=== PATIENT | male | born 1955 | race Two or more races ===

== ENCOUNTER 2025-03-31 06:55 | Day surgery (SDC) | payer OTHER, SELFPAY ==
[2025-03-30 08:44] LABS: Collection Type, Urine Clean Catch; Squamous Epithelial Cell,Urine 0 /hpf (0-5)
[2025-03-30 09:33] LABS: Basophils # (Auto) 0.0 Thou/mm3 (0.0-0.2); Basophils % (Auto) 1 % (0-2.5); Eosinophils # (Auto) 0.3 Thou/mm3 (0.0-0.5); Eosinophils % (Auto) 4 % (0-10); Hematocrit 42.4 % (41.0-53.0); Hemoglobin 14.3 g/dL (13.5-16.0); Immature Granulocytes Auto 0.02 Thou/mm3 (0.00-0.00); Lymphocytes # (Auto) 2.6 Thou/mm3 (1.0-4.8); Lymphocytes % (Auto) 37 % (10-50); Mean Corpuscular HGB Conc 33.7 g/dl (31.0-37.0); Mean Corpuscular Hemoglobin 30.2 pg (25.0-35.0); Mean Corpuscular Volume 90 fL (80-100); Monocytes # (Auto) 0.8 Thou/mm3 (0.0-0.8); Monocytes % (Auto) 11 % (0-12); Neutrophils # (Auto) 3.3 Thou/mm3 (1.8-7.7); Neutrophils % (Auto) 47 % (37-80); Nucleated Red Blood Cell # 0.00 Thou/mm3 (0.00-0.00); Nucleated Red Blood Cell % 0 /100 WBC (0); Platelet Count 261 Thou/mm3 (140-440); RDW Standard Deviation 42.6 fL (35.1-43.9); Red Blood Count 4.74 Miln/mm3 (4.50-5.90); White Blood Count 7.1 Thou/mm3 (3.8-10.6)
[2025-03-30 09:35] LABS: Bilirubin,Urine Negative (Negative); Blood,Urine Negative (Negative); Clarity,Urine Clear (Clear/Hazy); Color,Urine Lt-Yellow (Lt Yel-Yel); Glucose, Urine Negative (Negative); Ketones,Urine Negative (Negative); Leukocyte Esterase,Urine Negative (Negative); Nitrite,Urine Negative (Negative); PH,Urine 5.5 (5.0-7.0); Protein,Urine Negative (Neg - Trace); RBC,Urine 2 /hpf (0-3); Specific Gravity,Urine 1.015 (1.001-1.035); Urobilinogen,Urine Negative mg/dL (0.0-1.0); WBC,Urine < 1 /hpf (0-5)
[2025-03-30 09:57] LABS: Alanine Aminotransferase 26 U/L (10-49); Albumin, Serum 4.7 gm/dL (3.4-4.8); Albumin/Globulin Ratio 2.0 (1.2-2.2); Alkaline Phosphatase 83 U/L (46-116); Anion Gap 7 (7-16); Aspartate Amino Transferase 25 U/L (0-34); BUN/Creatinine Ratio 13 Ratio (12-20); Bilirubin,Total 0.7 mg/dL (0.3-1.2); Blood Urea Nitrogen 12 mg/dL (9-23); Calcium 9.8 mg/dL (8.3-10.6); Calcium (Corrected) 9.8 mg/dL (8.5-10.1); Carbon Dioxide 27.8 mMol/L (20.0-31.0); Chloride 105 mMol/L (98-107); Creatinine (Component) 0.9 mg/dL (0.6-1.3); Globulin 2.4 gm/dL (2.3-3.5); Glucose 107 mg/dL (74-106); Osmolality,Calculated 279 (275-295); Potassium 4.3 mMol/L (3.4-5.1); Sodium 140 mMol/L (136-145); Total Protein 7.1 gm/dL (5.7-8.2); eGFR > 60 See Note
[2025-03-30 10:22] VITALS: BMI 29.2
--- NOTE | 2025-03-30 12:05 | ESCONSULT_ITS ---
RE: RASHAD RAMOS : 1955 DATE OF CONSULTATION: 03/31/2025 HISTORY OF PRESENT ILLNESS: The patient is a 69-year-old gentleman who was referred to me with history of elevated PSA of 7.9. He has nocturia x2. His percentage free PSA is 15.3. He has frequency and he has some slowing of the urinary stream with some burning. There is no history of gross hematuria. PAST MEDICAL HISTORY: He has history of hypertension and no history of diabetes mellitus. PREVIOUS SURGERIES: None. SOCIAL HISTORY: He has three children. ALLERGIES: NONE KNOWN. HOME MEDICATIONS: He takes valsartan and tamsulosin 0.4 mg everyday. CLINICAL EXAMINATION: HEENT: Normal. NECK: Supple. LUNGS: Clear. CARDIOVASCULAR: Heart sounds are normal. ABDOMEN: Soft without any organomegaly. No guarding. No rigidity. EXTREMITIES: Normal. GENITOURINARY: Phallus is normal. Testes are down in the scrotum. Rectal examination revealed moderately enlarged prostate with a right lobe hard nodule, 1 cm in size. IMPRESSION: Prostatic obstruction. Elevated PSA of 7.9. Right lobe hard nodule on the prostate 1 cm in size. PLAN: Cystoscopy and transrectal prostatic ultrasound with ultrasound-guided prostatic needle biopsy. Plan, procedure, risks and complications have been discussed with the patient. The patient has understood them and agreed to proceed. Thank you very much for your kind referral. cc: Toño Saleh MD DT: 10:52:07 TT: 11:49:00 Ref: [id number] - TID: [id number]
[2025-03-31] VITALS (12 sets, daily range): BP systolic 111–138; BP diastolic 71–97; PULSE 57–79; RESP 10–18; TEMP 36.1–36.6; O2SAT 95–98; BMI 29.5
--- NOTE | 2025-03-31 07:28 | CHAP ---
Family member translated. Had a prayer with patient before procedure.
[2025-03-31] MEDS: RINGERS LACTATED 1000 ML 1,000 ML 20 ML IV (07:53)
--- NOTE | 2025-03-31 08:30 | XR_ITS ---
Examination: Transrectal prostate sonography Date and time: 9:302024, 0842 hours INDICATIONS: Ultrasound guided prostate biopsies in the OR today TECHNIQUE AND FINDINGS: Transrectal sonographic images obtained of the prostate Prostate volume 27.11 cc IMPRESSION: Transrectal prostate sonographic images obtained for prostate biopsies in the OR
--- NOTE | 2025-03-31 09:01 | SUR.PHASEII ---
pt received from OR in recovery bay 5. pt asleep but responds to voice, breathing unlabored on room air. v/s stable. report received from Dr. Lockwood and Louis BAKER.
[2025-03-31] MEDS: KETOROLAC INJ 30 MG/ML VIAL 60 MG IM (09:24)
--- NOTE | 2025-03-31 09:30 | SUR.PHASEII ---
pt c/o bladder pain and inability to urinate, bladder scan performed 349ml seen on bladder scan. Dr. Wilkinson informed. Rn instructed to keep pt until able to urinate.
--- NOTE | 2025-03-31 10:07 | SUR.PHASEII ---
pt able to tolerate oral fluids without difficulty swallowing or nausea/vomiting.
[2025-03-31] MEDS: TAMSULOSIN HCL 0.4 MG CAPSULE PO (10:18)
--- NOTE | 2025-03-31 11:27 | SUR.PHASEII ---
pt awake and alert, breathing unlabored on room air. v/s stable. pt able to ambulate to wheelchair with steady gait. d/c instructions given with stefany Payne in room, all questions answered. pt d/c via wheelchair with all belongings.
--- NOTE | 2025-03-31 11:29 | ESOP_ITS ---
RE: RASHAD RAMOS : 1955 DATE OF OPERATION: 03/31/2025 PREOPERATIVE DIAGNOSES: Prostatism, prostatic obstruction, elevated PSA of 15.3. POSTOPERATIVE DIAGNOSES: Prostatism, prostatic obstruction, elevated PSA of 15.3. PROCEDURES PERFORMED: Cystoscopy, urethral dilatation, transrectal prostatic ultrasound with ultrasound-guided prostatic needle biopsy. ANESTHESIA: Monitored anesthesia by Dr. Lockwood. INDICATION: The patient is a 69-year-old gentleman with elevated PSA of 15.3. He has nocturia x2 with slow urinary stream. Rectally, he has a moderately sized prostate with hard nodule on the right prostatic lobe, which is about 1 cm in size located laterally. He is now scheduled to have cystoscopy and transrectal prostatic ultrasound with ultrasound-guided prostatic needle biopsy. Planned procedure, risks and complications have been discussed with the patient. The patient has understood them and agreed to proceed. DESCRIPTION OF PROCEDURE: After the patient was brought to the operating table under adequate monitored anesthesia given by Dr. Lockwood and dorsal lithotomy position, parts were prepped and draped in the usual fashion. Cystoscopy was then carried out, which revealed adequate urethral meatus, normal-appearing urethra. Prostatic urethra is moderately enlarged, bilobed. Scope was introduced into the bladder. Residual urine is 4 ounces, yellow and clear. It was sent for culture and sensitivity examination. There are no intravesical stones or tumors. Bladder mucosa is moderately trabeculated. Ureteral orifice was found to be normal in position and appearance. Scope was withdrawn. The urethra was dilated. The patient was then turned in left lateral position. Transrectal prostatic ultrasound was carried out. Biopsies were obtained from both lobes using ultrasound guidance. Prostatic volume was measured at 27.1 cubic cm. At the end of the procedure, finger-guided biopsy of the right prostatic lobe nodule was also done. The patient tolerated the entire procedure well and left the room in good condition. DT: 09:13:57 TT: 11:28:00 Ref: [id number] - TID: [id number]
== END 2025-03-31 11:27 | disposition home or self-care (01) ==
PROVIDERS: Anesthesiology; PCP Family Medicine; Referring Provider Surgery; Visit Provider Surgery
PROC: (CPT 55700; principal; 2025-03-31 08:30)
PROC: 0TJB8ZZ Inspection of Bladder, Via Natural or Artificial Opening Endoscopic (ICD-10-PCS; CPT 52000; 2025-03-31 08:30)
DX: C61 Malignant neoplasm of prostate (principal); Z01.810 Encounter for preprocedural cardiovascular examination
CPT/HCPCS: 55700; 52281; 36415; 76942; 80053; 81001; 85025; 87086; 93005; A4217; A4649; J0694; J1885; J2704; J3010; J3490; J7120; A9270

== ENCOUNTER → 2025-04-17 | Outpatient (CLI) | payer OTHER, SELFPAY ==
--- NOTE | 2025-04-17 10:30 | XR_ITS ---
Examination: CT pelvis without intravenous contrast. 2-D sagittal and coronal reconstructions. Date and time of exam: April 17, 2025, 1030 hours INDICATIONS: Diagnosis malignant neoplasm of prostate 2 weeks ago 1 biopsy, staging CTDI: vol (mGy) : 8.99 DLP: (mGycm) : 290 Technique: Multiple 3 mm axial sections of the pelvis have been obtained with the 64 slice high resolution scanner. 2-D sagittal and coronal reconstructions. Low dose protocols were performed. One or more of the following dose reduction techniques were used; automated exposure control, adjustment of the mA and/or KV according to patient size, use of iterative reconstruction technique. Findings: Normal appendix. No common iliac or external iliac internal iliac or common femoral significant lymphadenopathy Symmetrical seminal vesicles Prostate transverse dimension 4.9 cm Thickening of the urinary bladder wall up to 12 mm Prominent osteopenia Negative for osteoblastic metastatic disease IMPRESSION: Prostatomegaly, transverse dimension 4.9 cm No pelvic lymphadenopathy Negative for osteoblastic metastatic disease.
== END | disposition home or self-care (01) ==
PROVIDERS: Referring Provider Surgery; Visit Provider Surgery
DX: N40.0 Benign prostatic hyperplasia without lower urinary tract symptoms (principal); C61 Malignant neoplasm of prostate
CPT/HCPCS: 72192

== ENCOUNTER → 2025-04-21 | Outpatient (CLI) | payer OTHER, SELFPAY ==
--- NOTE | 2025-04-21 14:30 | XR_ITS ---
Examination: Bone scan whole body, radioisotope Date and time of exam: April 21, 2025, 10:25 a.m. INDICATIONS: Diagnosis malignant neoplasm of prostate 3 weeks ago, staging, elevated PSA Technique: Study has been performed with intravenous administration of 24 mci 99M technetium MDP. Anterior, posterior whole body images are obtained. Images have been obtained including the lower extremities. Findings: Increased isotope accumulation above the manubrium Increased isotope accumulation upper dorsal spine on the right side approximately T5 Increased isotope accumulation L5 on the right IMPRESSION: Positive bone scan but nonspecific, recommend plain films thoracic lumbar spine, consider ultrasound soft tissue neck above the sternum
== END | disposition home or self-care (01) ==
PROVIDERS: PCP Family Medicine; Referring Provider Surgery; Visit Provider Surgery
DX: R93.7 Abnormal findings on diagnostic imaging of other parts of musculoskeletal system (principal); C61 Malignant neoplasm of prostate
CPT/HCPCS: 78306; A9503